=== PATIENT | male | born 1960 | race Caucasian/White ===

== ENCOUNTER 2019-02-17 14:30 | Outpatient (CLI) | payer BC ==
--- NOTE | 2019-02-17 16:41 | MRI ---
Cervical spine MRI without contrast: 02/17/2019 COMPARISON: None HISTORY: Fall, trauma, dizziness, radiculopathy TECHNIQUE: Multiplanar multisequence MR imaging of the cervical spine obtained without contrast FINDINGS: The sagittal STIR imaging demonstrates no focal area of osseous marrow edema. No prevertebr al soft tissue abnormality. There is degenerative change involving the atlantoaxial interspace. The craniocervical junction is intact. C2-3: No central canal or neural foraminal stenosis C3-4: No central canal or neural foraminal stenosis C4-5: No central canal or neural foraminal stenosis C5-6: Central annular tear. Minimal disc bulge. No central canal or neural foraminal stenosis. C6-7: No central canal or neural foraminal stenosis C7-T1: No central canal or neural foraminal stenosis. Benign hemangioma noted at T2 level. No focal area of abnormal signal intensity is identified within the cervical cord. IMPRESSION: Central annular tear at C5-6. No significant central canal or neural foraminal stenosis.
== END 2019-02-17 14:31 | disposition home or self-care (01) ==
LOC: SCSMRI 14:30
PROVIDERS: ATTEND Psychiatry & Neurology Neurology
DX: R42 Dizziness and giddiness (principal); M48.8X2 Other specified spondylopathies, cervical region
CPT/HCPCS: 72141

== ENCOUNTER 2021-09-07 14:51 | Outpatient (CLI) | payer BC ==
[~2021-09-07 14:51] MED LIST: Iopamidol 370 76% 100 ML VIAL ONE
== END 2021-09-07 14:52 | disposition home or self-care (01) ==
LOC: CT 14:51
PROVIDERS: ATTEND Family Medicine
DX: I27.20 Pulmonary hypertension, unspecified (principal); I28.8 Other diseases of pulmonary vessels
CPT/HCPCS: 71275; 82565; Q9967

== ENCOUNTER 2023-02-26 17:30 | Outpatient (CLI) | payer BC | END 2023-02-26 17:31 | disposition home or self-care (01) | LOC: SLEEPLAB 17:30 | PROVIDERS: ATTEND Internal Medicine Cardiovascular Disease | DX: G47.33 Obstructive sleep apnea (adult) (pediatric) (principal); R53.83 Other fatigue; R51.9 Headache, unspecified | CPT/HCPCS: 95800 ==